=== PATIENT | male | born 1970 | race African-American/Black ===

== ENCOUNTER 2018-11-15 14:53 | Inpatient (IN) | payer MEDICARE, OTHER ==
[~2018-11-15] VITALS: Ht 190.5 cm; Wt 79.7 kg
[2018-11-15 17:04] LABS: Basophils # (auto) 0.1 uL; Basophils % (auto) 0.6 % (0.0-2.0); Eosinophils # (auto) 0 uL; Eosinophils % (auto) 0.1 % (0.0-7.0); Hematocrit 40.5 % (41.0-53.0); Hemoglobin 13.3 g/dL (13.5-17.5); Lymphocytes % (auto) 16.9 % (10.0-50.0); Mean Corpuscular Hemoglobin 31.1 pg (28.0-32.0); Mean Corpuscular Hgb Conc. 32.9 g/dL (32.0-36.0); Mean Corpuscular Volume 94.7 fL (80.0-100.0); Monocytes # (auto) 1.9 uL; Neutrophils % (auto) 66.4 % (37.0-80.0); Platelet Count (auto) 213 10^3/uL (140-450); Red Blood Cells 4.28 10^6/uL (4.5-5.90); Red Cell Distribution Width 18.9 % (11.8-14.3)
[2018-11-15 17:16] LABS: Albumin 3.3 g/dL (3.4-5.0); Calcium 10.4 mg/dL (8.5-10.1); Potassium 4.9 mmol/L (3.5-5.1)
[2018-11-15 17:18] LABS: BUN/Creatinine Ratio 7.9
[2018-11-15 17:21] LABS: Bilirubin, Total 0.7 mg/dL (0.2-1.0); Total Protein 6.7 g/dL (6.4-8.2)
[2018-11-15] MEDS ORDERED: SODIUM CHLORIDE 0.9% 500 ML IV ONE (19:45)
[2018-11-15] MEDS ORDERED: NITROGLYCERIN 0.4 MG SL TAB SL PRN (19:45)
[2018-11-15] MEDS ORDERED: VANCOMYCIN PER PHARMACY 0 MG IV SCH (19:45)
[2018-11-15] MEDS ORDERED: MORPHINE SULF INJ 2 MG/ML SYRINGE 1ML IV PRN (19:45)
[2018-11-15] MEDS ORDERED: VANCOMYCIN 1GM/250ML 250 ML IV ONE (20:15)
[2018-11-15] MEDS: PANTOPRAZOLE 40 MG/10 ML VIAL INJ IV SCH (20:41)
--- NOTE | 2018-11-15 22:48 | NUR ---
Telemetry admit from [facility] admitted to Telemetry unit. Patient oriented to Shira Cr RN primary RN, unit, room, bed, and unit policies regarding patient care and visiting hours. Patient now on continuous telemetry monitoring, tele box #4 and telemetry reading on arrival to unit is SR. Patient on room air, weighed by bedscale and encouraged to call if they need something. All questions and concerns addressed, patient verbalized understanding. Note: PICC line in RUE from home, infusing NS 0.9% @ 100ml/hr. Patient noted to be incontinent of urine and wearing diaper from home. Diaper removed and discarded, patient cleaned of urine. Antifungal cream applied to perineum due to moisture-associated redness. All linens changed, personal clothing taken off and placed in bedside drawers. Patient placed in clean gown with assist from VALUER. Patient repositioned in bed for comfort, tolerated well. Secondary RN at bedside for admission and MRSA swab collection. Fall and safety precautions in place. Call light within reach. Will continue to monitor
[2018-11-15 22:50] VITALS: BP 140/88
[2018-11-15 23:24] VITALS: BP 140/88
[2018-11-15] MEDS ORDERED: POM PO (23:25)
[2018-11-15] MEDS: SODIUM CHLORIDE 0.9% 1,000 ML IV SCH (23:29)
[2018-11-16 04:45] VITALS: BP 141/84
[2018-11-16] MEDS: SODIUM CHLORIDE 0.9% 1,000 ML IV SCH ×2 (05:26→16:44)
--- NOTE | 2018-11-16 05:30 | NUR ---
REFUSE Dross Skimmer attempted to draw blood at this time, but patient is refusing. Attempted to calm patient down, educate patient, and hold upper extremities, but patient is refusing and unable to verbalize understanding. Dross Skimmer stated will return at later time. Will inform day shift RN
--- NOTE | 2018-11-16 08:00 | NUR ---
ASSESSMENT NOTE PATIENT IS ALERT TO SELF, VERY LIMITED TO UNDERSTAND, PT HAS AUTISM, INCONTINENT IN URINE AND STOOL, KEPT DRY AND CLEAN AT ALL TIMES.
[2018-11-16 08:35] VITALS: BP 147/78
--- NOTE | 2018-11-16 10:00 | NUR ---
FAMILY PATIENT'S SISTER AT BED SIDE
--- NOTE | 2018-11-16 11:10 | NUR ---
DR GONZALEZ AT BED SIDE FOLLOWING UP ON PT, DISCUSSING THE DISCHARGE PLANING WITH PATIENT'S SISTER TO TRANSFER PT TO [facility], FAMILY VERBALIS UNDERSTANDING
[2018-11-16 11:48] VITALS: BP 141/70
--- NOTE | 2018-11-16 15:02 | NUR ---
Transfer: [facility] declined pt . I have faxed @ 0803 hrs to [facility], and [facility]. await response
--- NOTE | 2018-11-16 15:30 | NUR ---
SIMA PAUL FROM [facility], INFORM ME THAT [facility] REFUSED TO TAKE PT BACK, CONTINUE ON TRANSFER PROCESS
--- NOTE | 2018-11-16 15:49 | NUR ---
Transfer: [facility] from [facility] called and stated they are at capacity at present
[2018-11-16 16:41] VITALS: BP 142/86
--- NOTE | 2018-11-16 16:42 | NUR ---
[facility] is on will call. Medicare [facility] form completed and faxed to [place] and Dianna confirmed they received form
[2018-11-16] MEDS: PANTOPRAZOLE 40 MG/10 ML VIAL INJ IV SCH (16:43)
--- NOTE | 2018-11-16 16:43 | NUR ---
called [facility] and [facility] and they are reviewing pt transfer packet
--- NOTE | 2018-11-16 16:49 | NUR ---
[facility] is on will call. [facility] did not receive transfer packet so I just refaxed
--- NOTE | 2018-11-16 18:30 | NUR ---
PATIENT'S SISTER CALLED TO FOLLOW UP ON PATIENT'S TRANSFER, MADE AWARE OF THE LATEST UPDATE
--- NOTE | 2018-11-16 18:57 | NUR ---
PATIENT REPOSITION AT ALL TIMES, KEPT ALWAYS DRY AND CLEAN
--- NOTE | 2018-11-16 19:30 | NUR ---
Opening Shift Note Assumed care of patient, awake, no S/S of distress/SOB or pain. Patient is mumbling words, unable to understand it. bed in lowest and locked position, bed alarm on, will continue to monitor for changes Q1hr and PRN.
[2018-11-16] MEDS ORDERED: VANCOMYCIN 1GM/250ML 250 ML IV ONE (21:00)
[2018-11-16 21:44] VITALS: BP 137/75
--- NOTE | 2018-11-17 01:25 | NUR ---
Turning to his side and every 2 hours done, will continue to monitor
[2018-11-17] MEDS: SODIUM CHLORIDE 0.9% 1,000 ML IV SCH ×2 (01:45→11:45)
[2018-11-17 04:43] VITALS: BP 131/80
[2018-11-17] MEDS ORDERED: PANTOPRAZOLE 40 MG/10 ML VIAL INJ IV SCH (06:00)
[2018-11-17 06:02] LABS: Basophils # (auto) 0 uL; Basophils % (auto) 0.8 % (0.0-2.0); Eosinophils # (auto) 0.1 uL; Hematocrit 32.8 % (41.0-53.0); Hemoglobin 11.1 g/dL (13.5-17.5); Lymphocytes # (auto) 1.6 uL; Lymphocytes % (auto) 28.5 % (10.0-50.0); Mean Corpuscular Hemoglobin 31.6 pg (28.0-32.0); Mean Corpuscular Hgb Conc. 33.7 g/dL (32.0-36.0); Mean Corpuscular Volume 93.7 fL (80.0-100.0); Monocytes # (auto) 0.8 uL; Monocytes % (auto) 14.8 % (0.0-12.0); Neutrophils # (auto) 3.1 uL; Neutrophils % (auto) 54.9 % (37.0-80.0); Platelet Count (auto) 167 10^3/uL (140-450); White Blood Cell 5.7 10^3/uL (4.4-10.8)
--- NOTE | 2018-11-17 06:06 | NUR ---
Noted MRSA Negative, removed Isolation [facility] at this time, CN Lucero renee
[2018-11-17 06:23] LABS: Albumin 2.8 g/dL (3.4-5.0); BUN/Creatinine Ratio 5.3; Calcium 8.8 mg/dL (8.5-10.1); Magnesium 2.1 mg/dL (1.6-2.6); Potassium 3.7 mmol/L (3.5-5.1)
[2018-11-17 06:26] LABS: Bilirubin, Total 0.4 mg/dL (0.2-1.0); Total Protein 5.3 g/dL (6.4-8.2)
[2018-11-17 06:33] LABS: Urine Bacteria FEW /hpf (None Seen); Urine Blood Negative /uL (Negative); Urine Hyaline Cast FEW /lpf (0 - 2); Urine Specific Gravity 1.015 (1.001-1.035)
[2018-11-17 06:34] LABS: Urine WBC 14 /hpf (0 - 3)
[2018-11-17 08:00] VITALS: BP 140/91
--- NOTE | 2018-11-17 08:00 | NUR ---
ASSESSMENT NOTE PATIENT CONTINUE STABLE, RESTING IN BED COMFORTABLY, NO DISTRESS NOTED, ABLE TO USE A FEW WORDS TO IDENTIFY HIS NEEDS, ABLE TO FOLLOW COMMANDS, AND SELF REPOSITION, INCONTINENT IN URINE AND STOOL, KEPT CLEAN AND DRY AT ALL TIMES.
--- NOTE | 2018-11-17 08:47 | NUR ---
Transfer: Called I and had to leave message, [facility] has no beds, [facility] states pt is a [facility] pt and they are no longer accepting other [facility] pts other than their own county of [place] per [facility] of [facility]. [facility] called and I had to leave message
--- NOTE | 2018-11-17 11:00 | NUR ---
DR MARCH IS HERE FOLLOWING UP ON PT, WITH DISCHARGE HOME INSTRUCTION, PATIENT'S SISTER VERBALIS UNDERSTANDING
[2018-11-17] MEDS ORDERED: PANT40TA2 PO (11:39)
--- NOTE | 2018-11-17 12:15 | NUR ---
PICC LINE REMOVED INTACT FROM RT UPPER ARM, INTACT, PRESSURE APPLIED, PATIENT'S SISTER AT BED SIDE AWARE
[2018-11-17 13:00] VITALS: BP 138/87
--- NOTE | 2018-11-17 13:00 | NUR ---
Discharge instructions given as ordered. Encourage to follow up with PMD as instructed. All questions and concerns addressed. Patient verbalized understanding.Medication reconciliation form completed and copy given to patient. IV removed with catheter intact, pressure dressing applied, Telemetry unit returned to ICU. Patient taken to vehicle via wheelchair with all personal belongings, accompanied by staff and family member. No distress noted at time of departure.
== END 2018-11-17 13:05 | disposition home or self-care (01) | DRG 378 ==
LOC: ER 14:53 → EDSEX 14:53 → EDBD 14:53 → TELE 14:54 → TELE-EAST 22:49
PROVIDERS: ADMIT Nurse Practitioner Acute Care; ATTEND Internal Medicine
DX: K92.2 Gastrointestinal hemorrhage, unspecified (principal); E87.1 Hypo-osmolality and hyponatremia; F84.0 Autistic disorder; D72.829 Elevated white blood cell count, unspecified; D64.9 Anemia, unspecified; N18.3 Chronic kidney disease, stage 3 (moderate); Z82.49 Family history of ischemic heart disease and other diseases of the circulatory system; Z83.3 Family history of diabetes mellitus
CPT/HCPCS: 36415; 71045; 74176; 80053; 80202; 81001; 83690; 83735; 85025; 86850; 86900; 86901; 87040; 87081; 94761; 96361; 96365; 96375; C9113; G0378

== ENCOUNTER 2019-01-17 14:59 | Emergency (ER) | payer MEDICARE, MEDICAID ==
[~2019-01-17] VITALS: Ht 182.9 cm; Wt 77.1 kg
[~2019-01-17 14:59] MED LIST: PANT40TA2 PO; POM PO
[2019-01-17] MEDS ORDERED: SODIUM CHLORIDE 0.9% 1,000 ML IV ONE ×2 (15:35)
[2019-01-17] MEDS ORDERED: ONDANSETRON HCL 4 MG/2 ML VIAL IV ONE (15:45)
[2019-01-17] MEDS ORDERED: LORazepam 2MG/ML-1ML VIAL IM ONE (17:00)
[2019-01-17 20:00] VITALS: BP 99/58
== END 2019-01-17 20:15 | disposition home or self-care (01) ==
LOC: EDBD 14:59 → ER 15:15
DX: E86.0 Dehydration (principal)
CPT/HCPCS: 71045; 74176; 93005; 96361; 96372; 96374; 99284; J2060; J2405; J7030

== ENCOUNTER 2021-11-24 14:11 | Emergency (ER) | payer MEDICARE, MEDICAID ==
[~2021-11-24] VITALS: Ht 188 cm; Wt 100.0 kg
[2021-11-24 14:22] VITALS: BP 126/75
[2021-11-24] MEDS ORDERED: ACCU-CHEK COMFORT CURVE STRIP VI ONE (15:00)
== END 2021-11-24 15:16 | disposition left against medical advice (07) ==
LOC: ER 14:11 → EDBD 14:11 → ER 15:16
DX: R53.1 Weakness (principal); Z53.21 Procedure and treatment not carried out due to patient leaving prior to being seen by health care provider

== ENCOUNTER 2021-11-25 06:47 | Inpatient (IN) | payer MEDICARE, MEDICAID ==
[~2021-11-25] VITALS: Ht 188 cm; Wt 92.7 kg
[2021-11-25] VITALS (12 sets, daily range): BP systolic 129–172; BP diastolic 68–91
[2021-11-25] MEDS ORDERED: FUROSEMIDE 40 MG/4 ML VIAL IV ONE (07:15)
[2021-11-25 07:36] LABS: Hematocrit 14.5 % (41.0-53.0); Mean Corpuscular Hemoglobin 34.5 pg (28.0-32.0); Mean Corpuscular Hgb Conc. 34.9 g/dL (32.0-36.0); Mean Corpuscular Volume 99.1 fL (80.0-100.0); Red Blood Cells 1.46 10^6/uL (4.5-5.90)
[2021-11-25 07:47] LABS: Red Cell Distribution Width 25.6 % (11.8-14.3)
[2021-11-25 07:48] LABS: Basophils % (manual) 0 (0.0-2.0); Blast Cells 0; Eosinophils % (manual) 0 (0-7); Metamyelocytes % 0; Promyelocytes % 0
[2021-11-25 07:49] LABS: Potassium 5.3 mmol/L (3.5-5.1)
[2021-11-25 07:55] LABS: BUN/Creatinine Ratio 3.6; Bilirubin, Total 0.8 mg/dL (0.2-1.0); Total Protein 6.6 g/dL (6.4-8.2)
[2021-11-25 08:00] LABS: INR 1.25 (0.9-1.15); Partial Thromboplastin Time 31.8 sec (24.6-33.4)
[2021-11-25] MEDS ORDERED: SODIUM CHL 0.9% 1000 ML BAG XX ONE (08:00)
[2021-11-25] MEDS ORDERED: BUMETANIDE 2.5mg/10ml (0.25 mg/ml) INJ IV ONE (08:15)
[2021-11-25 08:46] LABS: Band Neutrophils % (manual) 3; Lymphocytes % (manual) 22 (10.0-50.0); Monocytes % (manual) 14 (0-12); Myelocytes % 1; Reactive Lymphocytes 1
[2021-11-25] MEDS ORDERED: ONDANSETRON HCL 4 MG/2 ML VIAL IV PRN (11:45)
[2021-11-25] MEDS ORDERED: hydrALAZINE HCL 20 MG/ML VL IV PRN (12:15)
[2021-11-25 13:08] LABS: Cholesterol 117 mg/dL (< 200); HDL Cholesterol 43 mg/dL (40-59); LDL Cholesterol 57 mg/dL (< 100); Triglycerides 120 mg/dL (< 150)
[2021-11-25] MEDS: RIFAMPIN 300 MG PO SCH ×2 (14:00→21:30)
[2021-11-25] MEDS ORDERED: diphenhdrAMINE HCL 50 MG/1 ML VL IV ONE (18:00)
[2021-11-26] MEDS: RIFAMPIN 300 MG PO SCH ×2 (05:59→14:00)
[2021-11-26 09:00] VITALS: BP 152/87
[2021-11-26 10:06] LABS: Hematocrit 20.5 % (41.0-53.0); Mean Corpuscular Hemoglobin 32.8 pg (28.0-32.0); Mean Corpuscular Hgb Conc. 33.6 g/dL (32.0-36.0); Mean Corpuscular Volume 97.7 fL (80.0-100.0); White Blood Cell 3.2 10^3/uL (4.4-10.8)
[2021-11-26 10:23] LABS: Hemoglobin 6.9 g/dL (13.5-17.5)
[2021-11-26 10:25] LABS: Band Neutrophils % (manual) 0; Blast Cells 0; Eosinophils % (manual) 0 (0-7); Monocytes % (manual) 0 (0-12); Myelocytes % 0; Promyelocytes % 0; Reactive Lymphocytes 0
[2021-11-26 10:29] LABS: Potassium 4.3 mmol/L (3.5-5.1)
[2021-11-26 10:30] LABS: BUN/Creatinine Ratio 3.1; Calcium 8.3 mg/dL (8.5-10.1)
[2021-11-26] MEDS: PANTOPRAZOLE 40 MG TAB PO SCH (10:56)
[2021-11-26 12:33] VITALS: BP 130/74
[2021-11-26 12:48] VITALS: BP 125/68
[2021-11-26 13:00] VITALS: BP 130/74
[2021-11-26 13:07] LABS: Basophils % (manual) 1 (0.0-2.0); Lymphocytes % (manual) 15 (10.0-50.0); Metamyelocytes % 1
[2021-11-26 16:38] VITALS: BP 154/90
[2021-11-26 16:50] VITALS: BP 154/94
[2021-11-26] MEDS: rifAMPin 300 MG CAP PO SCH (22:14)
[2021-11-27 05:00] VITALS: BP 132/81
[2021-11-27] MEDS: rifAMPin 300 MG CAP PO SCH ×3 (06:24→22:00)
[2021-11-27 06:37] LABS: Hematocrit 22.8 % (41.0-53.0); Hemoglobin 7.7 g/dL (13.5-17.5)
[2021-11-27 06:39] LABS: % Iron Saturation 25.1 % (20-55)
[2021-11-27] MEDS ORDERED: SODIUM CHL 0.9% 1000 ML BAG XX ONE (07:00)
[2021-11-27 07:45] LABS: Albumin 3.1 g/dL (3.4-5.0); BUN/Creatinine Ratio 2.6; Calcium 8.1 mg/dL (8.5-10.1)
[2021-11-27 07:47] LABS: Bilirubin, Total 1.5 mg/dL (0.2-1.0)
[2021-11-27 08:35] LABS: Hematocrit 22.7 % (41.0-53.0); Hemoglobin 7.8 g/dL (13.5-17.5); Mean Corpuscular Hemoglobin 32.9 pg (28.0-32.0); Mean Corpuscular Hgb Conc. 34.4 g/dL (32.0-36.0); Mean Corpuscular Volume 95.6 fL (80.0-100.0); Red Blood Cells 2.37 10^6/uL (4.5-5.90); Red Cell Distribution Width 21.6 % (11.8-14.3); White Blood Cell 3.1 10^3/uL (4.4-10.8)
[2021-11-27 08:37] LABS: Basophils % (manual) 0 (0.0-2.0); Blast Cells 0; Metamyelocytes % 0; Myelocytes % 0; Promyelocytes % 0; Reactive Lymphocytes 0
[2021-11-27] MEDS: PANTOPRAZOLE 40 MG TAB PO SCH (08:46)
[2021-11-27 08:48] VITALS: BP 145/82
[2021-11-27 09:00] LABS: Folate (Folic Acid) 13.46 ng/mL (5.38-24)
[2021-11-27 09:21] LABS: Band Neutrophils % (manual) 3; Lymphocytes % (manual) 19 (10.0-50.0)
[2021-11-27 09:22] LABS: Eosinophils % (manual) 1 (0-7); Monocytes % (manual) 27 (0-12)
[2021-11-27 13:00] VITALS: BP 129/78
[2021-11-27] MEDS ORDERED: ACYC1CAP23 PO (16:15)
[2021-11-27] MEDS ORDERED: FAMO20TA10 PO (16:15)
[2021-11-27] MEDS ORDERED: ONDA-144 PO (16:28)
[2021-11-27] MEDS ORDERED: DEXA4TAB PO (16:28)
[2021-11-27] MEDS ORDERED: POM ×2 (16:28→16:30)
[2021-11-27] MEDS ORDERED: ALLO100T PO (16:28)
[2021-11-27] MEDS ORDERED: AML5T PO (16:30)
[2021-11-27] MEDS ORDERED: HYDR-4798 PO (16:30)
[2021-11-27 16:59] VITALS: BP 142/91
[2021-11-27] MEDS ORDERED: EPOETIN ALFA-EPBX 10,000 UNIT/1ML VIAL SC ONE (21:00)
[2021-11-27 22:00] VITALS: BP 137/88
[2021-11-28 05:00] VITALS: BP 143/91
[2021-11-28] MEDS: rifAMPin 300 MG CAP PO SCH ×2 (06:00→14:00)
[2021-11-28 08:52] VITALS: BP 155/92
[2021-11-28] MEDS: PANTOPRAZOLE 40 MG TAB PO SCH (10:11)
[2021-11-28 10:19] LABS: Hemoglobin 8.1 g/dL (13.5-17.5)
[2021-11-28 10:20] LABS: Hematocrit 24.7 % (41.0-53.0); Mean Corpuscular Hemoglobin 32.1 pg (28.0-32.0); Mean Corpuscular Hgb Conc. 32.7 g/dL (32.0-36.0); Mean Corpuscular Volume 98.2 fL (80.0-100.0); Red Blood Cells 2.51 10^6/uL (4.5-5.90)
[2021-11-28 10:22] LABS: Red Cell Distribution Width 22.4 % (11.8-14.3)
[2021-11-28 10:23] LABS: Basophils % (manual) 0 (0.0-2.0); Blast Cells 0; Promyelocytes % 0; Reactive Lymphocytes 0
[2021-11-28 10:41] LABS: Albumin 3.2 g/dL (3.4-5.0); Calcium 9.2 mg/dL (8.5-10.1); Potassium 4.2 mmol/L (3.5-5.1)
[2021-11-28 10:46] LABS: BUN/Creatinine Ratio 2.6; Total Protein 7.2 g/dL (6.4-8.2)
[2021-11-28 11:43] LABS: Band Neutrophils % (manual) 4; Eosinophils % (manual) 4 (0-7); Lymphocytes % (manual) 22 (10.0-50.0); Metamyelocytes % 3; Monocytes % (manual) 9 (0-12); Myelocytes % 1
[2021-11-28 13:00] VITALS: BP 145/86
[2021-11-28 16:59] VITALS: BP 149/83
[2021-11-28] MEDS ORDERED: cefTRIAXone 1GM/50ML D5W 50 ML IV ONE (18:45)
[2021-11-28 22:00] VITALS: BP 163/86
[2021-11-29 05:00] VITALS: BP 164/97
[2021-11-29] MEDS ORDERED: SODIUM CHL 0.9% 1000 ML BAG XX ONE (07:00)
[2021-11-29] MEDS ORDERED: cefTRIAXone 1GM/50ML D5W 50 ML IV SCH (09:00)
[2021-11-29 09:04] VITALS: BP 166/86
[2021-11-29] MEDS: PANTOPRAZOLE 40 MG TAB PO SCH (10:22)
[2021-11-29] MEDS ORDERED: MULT-1058 PO (11:09)
[2021-11-29] MEDS ORDERED: ASCO500C49 PO (11:09)
[2021-11-29] MEDS ORDERED: FERR-7 PO (11:09)
[2021-11-29] MEDS ORDERED: AZIT500T66 PO (11:09)
[2021-11-29 12:30] VITALS: BP 135/81
[2021-11-29 13:00] VITALS: BP 168/98
[2021-11-29] MEDS ORDERED: EPOETIN ALFA-EPBX 4,000 UNIT/ML VIAL SC ONE (21:00)
== END 2021-11-29 13:15 | disposition home or self-care (01) | DRG 291 ==
LOC: EDUNIT# 06:47 → ER 06:47 → OVERFLOW 11:35 → CENTRAL 16:07
PROVIDERS: ADMIT Registered Nurse; ATTEND Family Medicine
PROC: 5A1D70Z Performance of Urinary Filtration, Intermittent, Less than 6 Hours Per Day (ICD-10-PCS; principal; 2021-11-25)
PROC: 30233N1 Transfusion of Nonautologous Red Blood Cells into Peripheral Vein, Percutaneous Approach (ICD-10-PCS; 2021-11-25)
PROC: 5A1D70Z Performance of Urinary Filtration, Intermittent, Less than 6 Hours Per Day (ICD-10-PCS; 2021-11-27)
DX: I13.2 Hypertensive heart and chronic kidney disease with heart failure and with stage 5 chronic kidney disease, or end stage renal disease (principal); E43 Unspecified severe protein-calorie malnutrition; N18.6 End stage renal disease; J96.21 Acute and chronic respiratory failure with hypoxia; J18.9 Pneumonia, unspecified organism; C90.00 Multiple myeloma not having achieved remission; F84.0 Autistic disorder; J44.0 Chronic obstructive pulmonary disease with (acute) lower respiratory infection; J98.11 Atelectasis; Z66 Do not resuscitate; E87.5 Hyperkalemia; E78.5 Hyperlipidemia, unspecified; R79.1 Abnormal coagulation profile; D63.8 Anemia in other chronic diseases classified elsewhere; E78.00 Pure hypercholesterolemia, unspecified; I50.9 Heart failure, unspecified; Z99.2 Dependence on renal dialysis; Z68.35 Body mass index [BMI] 35.0-35.9, adult; Z82.49 Family history of ischemic heart disease and other diseases of the circulatory system
CPT/HCPCS: 36415; 71045; 80048; 80053; 80061; 82270; 82607; 82728; 82746; 83036; 83540; 83550; 83880; 84443; 84484; 85007; 85014; 85018; 85027; 85379; 85610; 85730; 86850; 86900; 86901; 86920; 87426; 90935; 93970; 96374; 99291; G0378; J0696; J1642

== ENCOUNTER 2021-11-30 11:20 | Inpatient (IN) | payer MEDICARE, MEDICAID ==
[~2021-11-30] VITALS: Ht 188 cm; Wt 86.0 kg
[~2021-11-30 11:20] MED LIST changes: +ACYC1CAP23 PO; +ALLO100T PO; +AML5T PO; +ASCO500C49 PO; +AZIT500T66 PO; +DEXA4TAB PO; +FAMO20TA10 PO; +FERR-7 PO; +HYDR-4798 PO; +MULT-1058 PO; +ONDA-144 PO; +POM; -POM PO
[2021-11-30 13:22] LABS: Hemoglobin 7.5 g/dL (13.5-17.5)
[2021-11-30 13:31] LABS: Hematocrit 22.3 % (41.0-53.0); Mean Corpuscular Hemoglobin 32.5 pg (28.0-32.0); Mean Corpuscular Hgb Conc. 33.6 g/dL (32.0-36.0); Mean Corpuscular Volume 96.8 fL (80.0-100.0)
[2021-11-30 13:32] LABS: Basophils % (manual) 0 (0.0-2.0); Blast Cells 0; Myelocytes % 0; Promyelocytes % 0; Reactive Lymphocytes 0; Red Cell Distribution Width 22.2 % (11.8-14.3)
[2021-11-30 13:43] LABS: Calcium 8.7 mg/dL (8.5-10.1); Potassium 5.1 mmol/L (3.5-5.1)
[2021-11-30 14:44] LABS: Band Neutrophils % (manual) 4; Eosinophils % (manual) 2 (0-7); Lymphocytes % (manual) 12 (10.0-50.0); Metamyelocytes % 1; Monocytes % (manual) 18 (0-12)
[2021-11-30 14:55] LABS: Bilirubin, Total 0.6 mg/dL (0.2-1.0)
[2021-11-30] MEDS ORDERED: levoFLOXacin 500MG 100 ML IV ONE (16:15)
[2021-11-30] MEDS ORDERED: MORPHINE SULFATE INJ 2 MG/ml SYRG IV PRN (16:45)
[2021-11-30] MEDS ORDERED: IPRATROPIUM BROM 0.5 MG/2.5ML INH SOL NEB PRN (16:45)
[2021-11-30] MEDS ORDERED: ALBUTEROL SULF 2.5 MG/0.5ML(0.5%) NEB SOLN NEB PRN (16:45)
[2021-11-30] MEDS ORDERED: NITROGLYCERIN 0.4 MG SL TAB SL PRN (16:45)
[2021-11-30] MEDS: ALBUTEROL SULF 2.5 MG/0.5ML(0.5%) NEB SOLN NEB SCH (17:14)
[2021-11-30] MEDS: IPRATROPIUM BROM 0.5 MG/2.5ML INH SOL NEB SCH (17:14)
[2021-11-30 17:20] VITALS: BP 154/93
[2021-11-30] MEDS ORDERED: LORazepam 2MG/ML-1ML VIAL IV ONE (21:15)
[2021-11-30] MEDS: FERROUS SULFATE 325mg EC TAB PO SCH (23:17)
[2021-12-01] VITALS (37 sets, daily range): BP systolic 103–180; BP diastolic 43–90
[2021-12-01] MEDS ORDERED: HALOPERIDOL LACTATE 5 MG/ML INJ VIAL IM ONE (00:30)
[2021-12-01 01:06] LABS: Hematocrit 21.5 % (41.0-53.0); Hemoglobin 7.5 g/dL (13.5-17.5); Mean Corpuscular Hemoglobin 33.7 pg (28.0-32.0); Mean Corpuscular Hgb Conc. 35.1 g/dL (32.0-36.0); Mean Corpuscular Volume 96.1 fL (80.0-100.0); Red Blood Cells 2.23 10^6/uL (4.5-5.90); White Blood Cell 3.7 10^3/uL (4.4-10.8)
[2021-12-01 01:14] LABS: Albumin 2.9 g/dL (3.4-5.0); BUN/Creatinine Ratio 3.1; Calcium 8.7 mg/dL (8.5-10.1); Potassium 4.8 mmol/L (3.5-5.1)
[2021-12-01] MEDS ORDERED: MORPHINE SULFATE INJ 2 MG/ml SYRG IV PRN (01:15)
[2021-12-01 01:17] LABS: Bilirubin, Total 0.6 mg/dL (0.2-1.0); Red Cell Distribution Width 21.9 % (11.8-14.3); Total Protein 7.4 g/dL (6.4-8.2)
[2021-12-01 01:18] LABS: Basophils % (manual) 0 (0.0-2.0); Blast Cells 0; Metamyelocytes % 0; Myelocytes % 0; Promyelocytes % 0; Reactive Lymphocytes 0
[2021-12-01 02:05] LABS: Band Neutrophils % (manual) 2; Eosinophils % (manual) 2 (0-7); Lymphocytes % (manual) 21 (10.0-50.0); Monocytes % (manual) 13 (0-12)
[2021-12-01] MEDS: IPRATROPIUM BROM 0.5 MG/2.5ML INH SOL NEB SCH ×3 (06:00→18:15)
[2021-12-01] MEDS: ALBUTEROL SULF 2.5 MG/0.5ML(0.5%) NEB SOLN NEB SCH ×3 (06:00→18:15)
[2021-12-01] MEDS ORDERED: LORazepam 2MG/ML-1ML VIAL IV ONE (06:15)
[2021-12-01] MEDS ORDERED: SUCCINYLCHOLINE CHLORIDE 20 MG/ML 10ML VIAL IV ONE ×2 (07:42→07:45)
[2021-12-01] MEDS ORDERED: ETOMIDATE (2MG/ML) 20ML VIAL IV ONE ×2 (07:42→07:45)
[2021-12-01] MEDS ORDERED: NOREPINEPHRINE 8 MG/250ML KIT 250 ML IV ONE (07:47)
[2021-12-01] MEDS ORDERED: MIDAZOLAM DRIP 50 mg/50mL 50 ML IV ONE (07:47)
[2021-12-01] MEDS: MIDAZOLAM DRIP 50 mg/50mL 50 ML IV SCH ×5 (07:50→23:13)
[2021-12-01] MEDS: PROPOFOL 100 ML IV SCH ×4 (07:50→18:59)
[2021-12-01] MEDS ORDERED: PROPOFOL 100 ML IV ONE (08:00)
[2021-12-01] MEDS ORDERED: LIDOCAINE 2% JELLY 11ml (GLYDO) ONE (08:41)
[2021-12-01] MEDS: NOREPINEPHRINE 8 MG/250ML KIT 250 ML IV SCH (09:00)
[2021-12-01] MEDS ORDERED: FAMOTIDINE 20 MG TAB PO SCH (10:00)
[2021-12-01] MEDS: amLODIPine BESYLATE 5 MG TAB PO SCH (10:00)
[2021-12-01] MEDS: FERROUS SULFATE 325mg EC TAB PO SCH ×2 (10:35→22:30)
[2021-12-01] MEDS: PANTOPRAZOLE 40 MG TAB PO SCH (10:35)
[2021-12-01] MEDS: cefTRIAXone 1GM/50ML D5W 50 ML IV SCH (10:36)
[2021-12-01] MEDS: ASCORBIC ACID 500 MG TAB PO SCH (10:36)
[2021-12-01] MEDS: MULTIPLE VITAMINS W/ MINERALS TAB PO SCH (10:36)
[2021-12-01] MEDS: AZITHROMYCIN 500MG/ 250ML 250 ML IV SCH (10:37)
[2021-12-01] MEDS ORDERED: SODIUM CHL 0.9% 1000 ML BAG XX ONE (12:45)
[2021-12-01] MEDS ORDERED: EPOETIN ALFA-EPBX 4,000 UNIT/ML VIAL SC ONE (21:00)
[2021-12-02] VITALS (105 sets, daily range): BP systolic 84–127; BP diastolic 29–72
[2021-12-02] MEDS: MIDAZOLAM DRIP 50 mg/50mL 50 ML IV SCH ×7 (02:10→23:13)
[2021-12-02] MEDS: PROPOFOL 100 ML IV SCH ×5 (02:39→22:55)
[2021-12-02 03:58] LABS: Hematocrit 21.1 % (41.0-53.0); White Blood Cell 2.2 10^3/uL (4.4-10.8)
[2021-12-02 04:00] LABS: Hemoglobin 7.2 g/dL (13.5-17.5); Mean Corpuscular Hgb Conc. 34.4 g/dL (32.0-36.0); Mean Corpuscular Volume 95.9 fL (80.0-100.0); Red Blood Cells 2.19 10^6/uL (4.5-5.90)
[2021-12-02 04:03] LABS: Basophils % (manual) 0 (0.0-2.0); Blast Cells 0; Metamyelocytes % 0; Myelocytes % 0; Promyelocytes % 0; Reactive Lymphocytes 0
[2021-12-02 04:11] LABS: INR 1.23 (0.9-1.15); Partial Thromboplastin Time 34.7 sec (24.6-33.4)
[2021-12-02 04:14] LABS: BUN/Creatinine Ratio 2.4; Calcium 8.6 mg/dL (8.5-10.1); Potassium 4.5 mmol/L (3.5-5.1)
[2021-12-02] MEDS: ALBUTEROL SULF 2.5 MG/0.5ML(0.5%) NEB SOLN NEB SCH ×3 (05:56→18:31)
[2021-12-02] MEDS: IPRATROPIUM BROM 0.5 MG/2.5ML INH SOL NEB SCH ×3 (05:56→18:31)
[2021-12-02] MEDS: NOREPINEPHRINE 8 MG/250ML KIT 250 ML IV SCH (07:40)
[2021-12-02] MEDS: cefTRIAXone 1GM/50ML D5W 50 ML IV SCH (08:35)
[2021-12-02 09:34] LABS: Band Neutrophils % (manual) 3; Eosinophils % (manual) 1 (0-7); Lymphocytes % (manual) 16 (10.0-50.0); Monocytes % (manual) 27 (0-12)
[2021-12-02] MEDS: MULTIPLE VITAMINS W/ MINERALS TAB PO SCH (09:41)
[2021-12-02] MEDS: ASCORBIC ACID 500 MG TAB PO SCH (09:41)
[2021-12-02] MEDS: FERROUS SULFATE 325mg EC TAB PO SCH ×2 (09:41→21:44)
[2021-12-02] MEDS: AZITHROMYCIN 500MG/ 250ML 250 ML IV SCH (09:41)
[2021-12-02] MEDS: PANTOPRAZOLE 40 MG TAB PO SCH (09:42)
[2021-12-02] MEDS: amLODIPine BESYLATE 5 MG TAB PO SCH (09:42)
[2021-12-03] VITALS (96 sets, daily range): BP systolic 85–144; BP diastolic 27–71
[2021-12-03] MEDS: MIDAZOLAM DRIP 50 mg/50mL 50 ML IV SCH ×6 (03:04→21:17)
[2021-12-03 03:55] LABS: Hematocrit 19.3 % (41.0-53.0)
[2021-12-03 04:07] LABS: Hemoglobin 6.7 g/dL (13.5-17.5)
[2021-12-03] MEDS: PROPOFOL 100 ML IV SCH ×4 (04:48→17:28)
[2021-12-03 05:08] LABS: Potassium 4.4 mmol/L (3.5-5.1)
[2021-12-03 05:09] LABS: Calcium 8.7 mg/dL (8.5-10.1); Magnesium 2.2 mg/dL (1.6-2.6)
[2021-12-03 05:12] LABS: BUN/Creatinine Ratio 2.6
[2021-12-03 05:27] LABS: INR 1.18 (0.9-1.15); Partial Thromboplastin Time 31.6 sec (24.6-33.4)
[2021-12-03] MEDS: IPRATROPIUM BROM 0.5 MG/2.5ML INH SOL NEB SCH ×3 (06:39→18:38)
[2021-12-03] MEDS: ALBUTEROL SULF 2.5 MG/0.5ML(0.5%) NEB SOLN NEB SCH ×3 (06:39→18:38)
[2021-12-03] MEDS ORDERED: SODIUM CHL 0.9% 1000 ML BAG XX ONE (07:00)
[2021-12-03] MEDS: PANTOPRAZOLE 40 MG/10 ML VIAL INJ IV SCH (10:31)
[2021-12-03] MEDS: FERROUS SULFATE 325mg EC TAB PO SCH ×2 (10:32→21:14)
[2021-12-03] MEDS: ASCORBIC ACID 500 MG TAB PO SCH (10:32)
[2021-12-03] MEDS: MULTIPLE VITAMINS W/ MINERALS TAB PO SCH (10:32)
[2021-12-03] MEDS ORDERED: ALBUMIN 25% 100 ML IV ONE (11:45)
[2021-12-03] MEDS: cefTRIAXone 1GM/50ML D5W 50 ML IV SCH (13:31)
[2021-12-03] MEDS: NOREPINEPHRINE 8 MG/250ML KIT 250 ML IV SCH (13:48)
[2021-12-03] MEDS: AZITHROMYCIN 500MG/ 250ML 250 ML IV SCH (14:02)
[2021-12-03] MEDS ORDERED: EPOETIN ALFA-EPBX 10,000 UNIT/1ML VIAL SC ONE (21:00)
[2021-12-04] VITALS (108 sets, daily range): BP systolic 92–133; BP diastolic 32–73
[2021-12-04] MEDS: PROPOFOL 100 ML IV SCH ×4 (00:37→20:40)
[2021-12-04] MEDS: MIDAZOLAM DRIP 50 mg/50mL 50 ML IV SCH ×3 (04:40→20:49)
[2021-12-04 05:14] LABS: BUN/Creatinine Ratio 2.2; Calcium 8.6 mg/dL (8.5-10.1); Potassium 4.1 mmol/L (3.5-5.1)
[2021-12-04 05:17] LABS: White Blood Cell 2.8 10^3/uL (4.4-10.8)
[2021-12-04 05:19] LABS: Hematocrit 22.9 % (41.0-53.0); Mean Corpuscular Hemoglobin 33.2 pg (28.0-32.0); Mean Corpuscular Volume 94.9 fL (80.0-100.0); Red Blood Cells 2.41 10^6/uL (4.5-5.90)
[2021-12-04 05:21] LABS: Basophils % (manual) 0 (0.0-2.0); Blast Cells 0; Myelocytes % 0; Promyelocytes % 0; Reactive Lymphocytes 0; Red Cell Distribution Width 20.6 % (11.8-14.3)
[2021-12-04] MEDS: ALBUTEROL SULF 2.5 MG/0.5ML(0.5%) NEB SOLN NEB SCH ×3 (06:15→18:38)
[2021-12-04] MEDS: IPRATROPIUM BROM 0.5 MG/2.5ML INH SOL NEB SCH ×3 (06:15→18:39)
[2021-12-04] MEDS: NOREPINEPHRINE 8 MG/250ML KIT 250 ML IV SCH (07:40)
[2021-12-04 09:00] LABS: Band Neutrophils % (manual) 3; Eosinophils % (manual) 1 (0-7); Lymphocytes % (manual) 16 (10.0-50.0); Metamyelocytes % 2; Monocytes % (manual) 21 (0-12)
[2021-12-04] MEDS: cefTRIAXone 1GM/50ML D5W 50 ML IV SCH (09:26)
[2021-12-04] MEDS: MULTIPLE VITAMINS W/ MINERALS TAB PO SCH (09:42)
[2021-12-04] MEDS: PANTOPRAZOLE 40 MG/10 ML VIAL INJ IV SCH (09:42)
[2021-12-04] MEDS: FERROUS SULFATE 325mg EC TAB PO SCH ×2 (09:42→20:49)
[2021-12-04] MEDS: ASCORBIC ACID 500 MG TAB PO SCH (09:48)
[2021-12-04] MEDS: AZITHROMYCIN 500MG/ 250ML 250 ML IV SCH (10:06)
[2021-12-04] MEDS ORDERED: IODIXANOL 320MG/ML 100ML BTL IV ONE (13:11)
[2021-12-05] VITALS (109 sets, daily range): BP systolic 72–142; BP diastolic 25–67
[2021-12-05] MEDS: NOREPINEPHRINE 8 MG/250ML KIT 250 ML IV SCH (01:45)
[2021-12-05] MEDS: PROPOFOL 100 ML IV SCH ×2 (03:20→08:49)
[2021-12-05 03:59] LABS: White Blood Cell 2.7 10^3/uL (4.4-10.8)
[2021-12-05 04:00] LABS: Potassium 4.2 mmol/L (3.5-5.1)
[2021-12-05 04:01] LABS: Hematocrit 21.5 % (41.0-53.0); Hemoglobin 7.5 g/dL (13.5-17.5); Mean Corpuscular Hgb Conc. 34.9 g/dL (32.0-36.0); Mean Corpuscular Volume 94.5 fL (80.0-100.0); Red Blood Cells 2.28 10^6/uL (4.5-5.90)
[2021-12-05 04:04] LABS: BUN/Creatinine Ratio 2.8; Calcium 8.8 mg/dL (8.5-10.1); Red Cell Distribution Width 20.7 % (11.8-14.3)
[2021-12-05 04:06] LABS: Basophils % (manual) 0 (0.0-2.0); Blast Cells 0; Metamyelocytes % 0; Promyelocytes % 0; Reactive Lymphocytes 0
[2021-12-05 04:09] LABS: INR 1.13 (0.9-1.15); Partial Thromboplastin Time 33.9 sec (24.6-33.4)
[2021-12-05] MEDS: MIDAZOLAM DRIP 50 mg/50mL 50 ML IV SCH ×2 (04:10→21:45)
[2021-12-05] MEDS: ALBUTEROL SULF 2.5 MG/0.5ML(0.5%) NEB SOLN NEB SCH ×3 (05:59→17:42)
[2021-12-05] MEDS: IPRATROPIUM BROM 0.5 MG/2.5ML INH SOL NEB SCH ×3 (05:59→17:42)
[2021-12-05 06:37] LABS: Band Neutrophils % (manual) 5; Eosinophils % (manual) 2 (0-7); Lymphocytes % (manual) 14 (10.0-50.0); Myelocytes % 6
[2021-12-05 06:38] LABS: Monocytes % (manual) 20 (0-12)
[2021-12-05] MEDS ORDERED: SODIUM CHL 0.9% 1000 ML BAG XX ONE (07:00)
[2021-12-05] MEDS: cefTRIAXone 1GM/50ML D5W 50 ML IV SCH (08:45)
[2021-12-05] MEDS ORDERED: HEPARIN IN NS 1000Units/500mL 0 ML ONE (08:47)
[2021-12-05] MEDS ORDERED: LIDOCAINE 2%HCL (LOCAL ANESTH.) INJ 10ml MDV ONE (08:47)
[2021-12-05] MEDS: AZITHROMYCIN 500MG/ 250ML 250 ML IV SCH (09:54)
[2021-12-05] MEDS: PANTOPRAZOLE 40 MG/10 ML VIAL INJ IV SCH (09:54)
[2021-12-05] MEDS: MULTIPLE VITAMINS W/ MINERALS TAB PO SCH (10:11)
[2021-12-05] MEDS: ASCORBIC ACID 500 MG TAB PO SCH (10:11)
[2021-12-05] MEDS: FERROUS SULFATE 325mg EC TAB PO SCH ×2 (10:11→21:40)
[2021-12-05] MEDS ORDERED: VANCOMYCIN PER PHARMACY 0 MG IV SCH (14:45)
[2021-12-05] MEDS ORDERED: Nepro With Carb Steady 1 Liter Bottle GT SCH (15:15)
[2021-12-05] MEDS ORDERED: VANCOMYCIN 1GM/250ML 250 ML IV ONE (15:45)
[2021-12-05] MEDS ORDERED: EPOETIN ALFA-EPBX 10,000 UNIT/1ML VIAL SC ONE (21:00)
[2021-12-06] VITALS (107 sets, daily range): BP systolic 84–184; BP diastolic 31–77
[2021-12-06] MEDS: ALBUTEROL SULF 2.5 MG/0.5ML(0.5%) NEB SOLN NEB SCH ×4 (00:01→18:06)
[2021-12-06] MEDS: IPRATROPIUM BROM 0.5 MG/2.5ML INH SOL NEB SCH ×4 (00:01→18:06)
[2021-12-06] MEDS: MIDAZOLAM DRIP 50 mg/50mL 50 ML IV SCH ×5 (01:44→21:09)
[2021-12-06 04:57] LABS: BUN/Creatinine Ratio 2.3; Calcium 9.1 mg/dL (8.5-10.1)
[2021-12-06 04:58] LABS: Mean Corpuscular Volume 95.4 fL (80.0-100.0)
[2021-12-06 05:00] LABS: Hematocrit 21.7 % (41.0-53.0); Hemoglobin 7.6 g/dL (13.5-17.5); Mean Corpuscular Hemoglobin 33.3 pg (28.0-32.0); Mean Corpuscular Hgb Conc. 34.9 g/dL (32.0-36.0); Red Blood Cells 2.28 10^6/uL (4.5-5.90); White Blood Cell 3.1 10^3/uL (4.4-10.8)
[2021-12-06 05:08] LABS: Red Cell Distribution Width 20.8 % (11.8-14.3)
[2021-12-06 05:10] LABS: Basophils % (manual) 0 (0.0-2.0); Blast Cells 0; Metamyelocytes % 0; Promyelocytes % 0; Reactive Lymphocytes 0
[2021-12-06 07:01] LABS: Band Neutrophils % (manual) 20; Eosinophils % (manual) 1 (0-7); Lymphocytes % (manual) 13 (10.0-50.0); Monocytes % (manual) 18 (0-12); Myelocytes % 2
[2021-12-06] MEDS: cefTRIAXone 1GM/50ML D5W 50 ML IV SCH (09:03)
[2021-12-06] MEDS: ASCORBIC ACID 500 MG TAB PO SCH (09:44)
[2021-12-06] MEDS: MULTIPLE VITAMINS W/ MINERALS TAB PO SCH (09:44)
[2021-12-06] MEDS: PANTOPRAZOLE 40 MG/10 ML VIAL INJ IV SCH (09:44)
[2021-12-06] MEDS: FERROUS SULFATE 325mg EC TAB PO SCH ×2 (09:44→21:44)
[2021-12-06] MEDS: AZITHROMYCIN 500MG/ 250ML 250 ML IV SCH (09:48)
[2021-12-06] MEDS: NOREPINEPHRINE 8 MG/250ML KIT 250 ML IV SCH (11:43)
[2021-12-06] MEDS ORDERED: POM PO (15:08)
[2021-12-07] VITALS (65 sets, daily range): BP systolic 86–154; BP diastolic 31–74
[2021-12-07] MEDS: IPRATROPIUM BROM 0.5 MG/2.5ML INH SOL NEB SCH ×3 (00:07→18:11)
[2021-12-07] MEDS: ALBUTEROL SULF 2.5 MG/0.5ML(0.5%) NEB SOLN NEB SCH ×3 (00:07→18:11)
[2021-12-07] MEDS: MIDAZOLAM DRIP 50 mg/50mL 50 ML IV SCH ×5 (00:13→23:45)
[2021-12-07 04:16] LABS: Hematocrit 22.7 % (41.0-53.0); Mean Corpuscular Hemoglobin 33.5 pg (28.0-32.0); Mean Corpuscular Hgb Conc. 35.1 g/dL (32.0-36.0); Mean Corpuscular Volume 95.5 fL (80.0-100.0); Red Blood Cells 2.38 10^6/uL (4.5-5.90)
[2021-12-07 04:23] LABS: Red Cell Distribution Width 20.9 % (11.8-14.3)
[2021-12-07 04:25] LABS: Basophils % (manual) 0 (0.0-2.0); Blast Cells 0; Promyelocytes % 0; Reactive Lymphocytes 0
[2021-12-07 04:42] LABS: Albumin 2.4 g/dL (3.4-5.0); Anion Gap 14 (5-15); Blood Urea Nitrogen 23 mg/dL (7-18); Calcium 8.7 mg/dL (8.5-10.1); Carbon Dioxide 22 mmol/L (21-32); Chloride 102 mmol/L (98-107); Glucose 91 mg/dL (74-106); Potassium 4.1 mmol/L (3.5-5.1); Sodium 138 mmol/L (136-145)
[2021-12-07 04:44] LABS: BUN/Creatinine Ratio 2.7; GFR African American 8 mL/min; GFR Non-African American 7 mL/min; Phosphorus 4.7 mg/dL (2.5-4.90)
[2021-12-07 05:02] LABS: Band Neutrophils % (manual) 6; Eosinophils % (manual) 1 (0-7); Lymphocytes % (manual) 22 (10.0-50.0); Metamyelocytes % 1; Monocytes % (manual) 14 (0-12); Myelocytes % 2
[2021-12-07] MEDS: NOREPINEPHRINE 8 MG/250ML KIT 250 ML IV SCH (07:40)
[2021-12-07] MEDS: PROPOFOL 100 ML IV SCH (07:45)
[2021-12-07] MEDS: cefTRIAXone 1GM/50ML D5W 50 ML IV SCH (09:13)
[2021-12-07] MEDS ORDERED: VANCOMYCIN 1GM/250ML 250 ML IV ONE (10:00)
[2021-12-07] MEDS: ASCORBIC ACID 500 MG TAB PO SCH (10:26)
[2021-12-07] MEDS: FERROUS SULFATE 325mg EC TAB PO SCH ×2 (10:27→21:41)
[2021-12-07] MEDS: AZITHROMYCIN 500MG/ 250ML 250 ML IV SCH (10:27)
[2021-12-07] MEDS: MULTIPLE VITAMINS W/ MINERALS TAB PO SCH (10:27)
[2021-12-07] MEDS: PANTOPRAZOLE 40 MG/10 ML VIAL INJ IV SCH (10:27)
[2021-12-08] VITALS (54 sets, daily range): BP systolic 78–131; BP diastolic 45–78
[2021-12-08] MEDS: MIDAZOLAM DRIP 50 mg/50mL 50 ML IV SCH ×4 (04:45→18:05)
[2021-12-08] MEDS: IPRATROPIUM BROM 0.5 MG/2.5ML INH SOL NEB SCH ×3 (06:17→19:30)
[2021-12-08] MEDS: ALBUTEROL SULF 2.5 MG/0.5ML(0.5%) NEB SOLN NEB SCH ×3 (06:17→19:30)
[2021-12-08] MEDS ORDERED: SODIUM CHL 0.9% 1000 ML BAG XX ONE (07:00)
[2021-12-08] MEDS: PROPOFOL 100 ML IV SCH (07:45)
[2021-12-08] MEDS ORDERED: LORazepam 2MG/ML-1ML VIAL IV ONE ×2 (09:45)
[2021-12-08] MEDS ORDERED: DexAMETHasone SOD PHOS 4 MG/1ML SDV INJ IV ONE (10:45)
[2021-12-08] MEDS ORDERED: ALBUMIN 25% 50 ML IV ONE (11:15)
[2021-12-08] MEDS: NOREPINEPHRINE 8 MG/250ML KIT 250 ML IV SCH (11:30)
[2021-12-08] MEDS: PANTOPRAZOLE 40 MG/10 ML VIAL INJ IV SCH (13:57)
[2021-12-08] MEDS: cefTRIAXone 1GM/50ML D5W 50 ML IV SCH (13:57)
[2021-12-08] MEDS: MULTIPLE VITAMINS W/ MINERALS TAB PO SCH (13:57)
[2021-12-08] MEDS: FERROUS SULFATE 325mg EC TAB PO SCH ×2 (13:57→21:31)
[2021-12-08] MEDS: ASCORBIC ACID 500 MG TAB PO SCH (13:58)
[2021-12-08] MEDS ORDERED: EPOETIN ALFA-EPBX 10,000 UNIT/1ML VIAL SC ONE (21:00)
[2021-12-09] VITALS (43 sets, daily range): BP systolic 77–134; BP diastolic 35–72
[2021-12-09] MEDS: MIDAZOLAM DRIP 50 mg/50mL 50 ML IV SCH ×2 (00:45→05:45)
[2021-12-09 04:47] LABS: Hemoglobin 7.8 g/dL (13.5-17.5); White Blood Cell 5.7 10^3/uL (4.4-10.8)
[2021-12-09 04:49] LABS: Hematocrit 22.8 % (41.0-53.0); Mean Corpuscular Hemoglobin 33.1 pg (28.0-32.0); Mean Corpuscular Volume 97.3 fL (80.0-100.0); Red Blood Cells 2.35 10^6/uL (4.5-5.90)
[2021-12-09 04:51] LABS: Red Cell Distribution Width 22.5 % (11.8-14.3)
[2021-12-09 04:53] LABS: Basophils % (manual) 0 (0.0-2.0); Blast Cells 0; Eosinophils % (manual) 0 (0-7); Metamyelocytes % 0; Myelocytes % 0; Promyelocytes % 0; Reactive Lymphocytes 0
[2021-12-09 05:06] LABS: BUN/Creatinine Ratio 3.2; Potassium 3.4 mmol/L (3.5-5.1)
[2021-12-09] MEDS: ALBUTEROL SULF 2.5 MG/0.5ML(0.5%) NEB SOLN NEB SCH (06:18)
[2021-12-09] MEDS: IPRATROPIUM BROM 0.5 MG/2.5ML INH SOL NEB SCH ×4 (06:19→23:59)
[2021-12-09] MEDS: NOREPINEPHRINE 8 MG/250ML KIT 250 ML IV SCH (07:40)
[2021-12-09] MEDS: PROPOFOL 100 ML IV SCH (07:45)
[2021-12-09 08:41] LABS: Band Neutrophils % (manual) 6; Lymphocytes % (manual) 31 (10.0-50.0); Monocytes % (manual) 18 (0-12)
[2021-12-09] MEDS: ASCORBIC ACID 500 MG TAB PO SCH (10:14)
[2021-12-09] MEDS: cefTRIAXone 1GM/50ML D5W 50 ML IV SCH (10:14)
[2021-12-09] MEDS: MULTIPLE VITAMINS W/ MINERALS TAB PO SCH (10:14)
[2021-12-09] MEDS: FERROUS SULFATE 325mg EC TAB PO SCH ×2 (10:14→22:47)
[2021-12-09] MEDS: PANTOPRAZOLE 40 MG/10 ML VIAL INJ IV SCH (10:14)
[2021-12-09] MEDS: DexAMETHasone SOD PHOS 10MG/1ML VIAL INJ IV SCH (10:14)
[2021-12-09] MEDS: METOPROLOL TARTRATE 25 MG TAB PO SCH (10:29)
[2021-12-09 11:41] LABS: % Iron Saturation 40.3 % (20-55)
[2021-12-09] MEDS: LEVALBUTEROL HCL 1.25 MG/3 ML NEB NEB SCH ×3 (13:01→23:59)
[2021-12-09] MEDS: ACETAMINOPHEN 650 mg PER 20.3 mL UD GT PRN (20:05)
[2021-12-09] MEDS ORDERED: METOPROLOL TARTRATE 25 MG TAB PO SCH (22:00)
[2021-12-10] VITALS (38 sets, daily range): BP systolic 97–149; BP diastolic 54–85
[2021-12-10] MEDS: METOPROLOL TARTRATE 25 MG TAB PO SCH ×3 (02:49→21:39)
[2021-12-10 04:42] LABS: Hemoglobin 7.4 g/dL (13.5-17.5)
[2021-12-10 04:45] LABS: Hematocrit 21.4 % (41.0-53.0); Mean Corpuscular Hemoglobin 33.4 pg (28.0-32.0); Mean Corpuscular Hgb Conc. 34.7 g/dL (32.0-36.0); Mean Corpuscular Volume 96.3 fL (80.0-100.0); Red Blood Cells 2.22 10^6/uL (4.5-5.90); White Blood Cell 6.2 10^3/uL (4.4-10.8)
[2021-12-10 04:54] LABS: Red Cell Distribution Width 22.2 % (11.8-14.3)
[2021-12-10 04:55] LABS: Basophils % (manual) 0 (0.0-2.0); Blast Cells 0; Metamyelocytes % 0; Promyelocytes % 0; Reactive Lymphocytes 0
[2021-12-10 05:12] LABS: Calcium 8.9 mg/dL (8.5-10.1); Potassium 3.1 mmol/L (3.5-5.1)
[2021-12-10 05:14] LABS: BUN/Creatinine Ratio 3.5
[2021-12-10] MEDS: LEVALBUTEROL HCL 1.25 MG/3 ML NEB NEB SCH ×3 (06:00→23:57)
[2021-12-10] MEDS: IPRATROPIUM BROM 0.5 MG/2.5ML INH SOL NEB SCH ×2 (06:25→18:00)
[2021-12-10] MEDS ORDERED: SODIUM CHL 0.9% 1000 ML BAG XX ONE (07:00)
[2021-12-10 07:09] LABS: Band Neutrophils % (manual) 7; Eosinophils % (manual) 2 (0-7); Lymphocytes % (manual) 13 (10.0-50.0); Monocytes % (manual) 20 (0-12); Myelocytes % 6
[2021-12-10] MEDS: NOREPINEPHRINE 8 MG/250ML KIT 250 ML IV SCH (07:40)
[2021-12-10] MEDS ORDERED: POTASSIUM CHL 20 Meq TABLET PO ONE (09:30)
[2021-12-10] MEDS ORDERED: METOPROLOL TARTRATE 25 MG TAB PO SCH (10:00)
[2021-12-10] MEDS ORDERED: PIPERACILLIN-TAZOB 2.25GM 50 ML IV ONE (11:45)
[2021-12-10] MEDS ORDERED: AMIODARONE HCL 150 MG in D5W 5% 100 ML IV ONE (12:15)
[2021-12-10] MEDS ORDERED: AMIODARONE 450mg/250ml AE 250 ML IV SCH (12:30)
[2021-12-10] MEDS: FERROUS SULFATE 325mg EC TAB PO SCH (12:33)
[2021-12-10] MEDS: PANTOPRAZOLE 40 MG/10 ML VIAL INJ IV SCH (12:33)
[2021-12-10] MEDS: DexAMETHasone SOD PHOS 10MG/1ML VIAL INJ IV SCH (12:33)
[2021-12-10] MEDS: MULTIPLE VITAMINS W/ MINERALS TAB PO SCH (12:34)
[2021-12-10] MEDS ORDERED: DIGOXIN 0.25 MG TAB PO ONE (14:30)
[2021-12-10] MEDS ORDERED: VANCOMYCIN 1GM/250ML 250 ML IV ONE (16:00)
[2021-12-10] MEDS: AMIODARONE 450mg/250ml AE 250 ML IV SCH (20:50)
[2021-12-10] MEDS ORDERED: EPOETIN ALFA-EPBX 4,000 UNIT/ML VIAL SC ONE (21:00)
[2021-12-10] MEDS: PIPERACILLIN-TAZOB 2.25GM 50 ML IV SCH (21:38)
[2021-12-11] VITALS (45 sets, daily range): BP systolic 125–165; BP diastolic 66–99
[2021-12-11 04:43] LABS: Hematocrit 21.6 % (41.0-53.0); Hemoglobin 7.6 g/dL (13.5-17.5); Mean Corpuscular Hemoglobin 33.8 pg (28.0-32.0); Mean Corpuscular Hgb Conc. 35.2 g/dL (32.0-36.0); Mean Corpuscular Volume 96.2 fL (80.0-100.0); Red Blood Cells 2.24 10^6/uL (4.5-5.90); White Blood Cell 7.4 10^3/uL (4.4-10.8)
[2021-12-11 04:45] LABS: Basophils % (manual) 0 (0.0-2.0); Blast Cells 0; Eosinophils % (manual) 0 (0-7); Metamyelocytes % 0; Myelocytes % 0; Promyelocytes % 0; Reactive Lymphocytes 0; Red Cell Distribution Width 22.5 % (11.8-14.3)
[2021-12-11 04:56] LABS: Calcium 8.8 mg/dL (8.5-10.1); Potassium 3.4 mmol/L (3.5-5.1)
[2021-12-11 04:59] LABS: BUN/Creatinine Ratio 3.8; Bilirubin, Total 0.8 mg/dL (0.2-1.0); Total Protein 6.8 g/dL (6.4-8.2)
[2021-12-11] MEDS: PIPERACILLIN-TAZOB 2.25GM 50 ML IV SCH ×3 (05:54→21:28)
[2021-12-11] MEDS: NOREPINEPHRINE 8 MG/250ML KIT 250 ML IV SCH (07:40)
[2021-12-11 08:05] LABS: Band Neutrophils % (manual) 5; Lymphocytes % (manual) 35 (10.0-50.0)
[2021-12-11 08:06] LABS: Monocytes % (manual) 14 (0-12)
[2021-12-11] MEDS: IPRATROPIUM BROM 0.5 MG/2.5ML INH SOL NEB SCH ×3 (08:12→18:00)
[2021-12-11] MEDS: LEVALBUTEROL HCL 1.25 MG/3 ML NEB NEB SCH ×3 (08:12→18:00)
[2021-12-11] MEDS: DexAMETHasone SOD PHOS 10MG/1ML VIAL INJ IV SCH (10:00)
[2021-12-11] MEDS: PANTOPRAZOLE 40 MG/10 ML VIAL INJ IV SCH (10:00)
[2021-12-11] MEDS: MULTIPLE VITAMINS W/ MINERALS TAB PO SCH (10:00)
[2021-12-11] MEDS: METOPROLOL TARTRATE 25 MG TAB PO SCH ×2 (10:01→21:30)
[2021-12-11] MEDS: AMIODARONE 450mg/250ml AE 250 ML IV SCH (10:49)
[2021-12-11] MEDS ORDERED: POTASSIUM CHL 20MEQ/100ML 100 ML IV ONE (13:45)
[2021-12-11] MEDS: AMIODARONE HCL 200 MG TAB PO SCH (21:29)
[2021-12-12] VITALS (35 sets, daily range): BP systolic 119–152; BP diastolic 66–86
[2021-12-12] MEDS: IPRATROPIUM BROM 0.5 MG/2.5ML INH SOL NEB SCH ×2 (01:16→18:00)
[2021-12-12 04:52] LABS: Mean Corpuscular Hgb Conc. 35.2 g/dL (32.0-36.0); Red Blood Cells 2.26 10^6/uL (4.5-5.90); White Blood Cell 8.1 10^3/uL (4.4-10.8)
[2021-12-12 04:57] LABS: Hematocrit 21.6 % (41.0-53.0); Hemoglobin 7.6 g/dL (13.5-17.5); Mean Corpuscular Hemoglobin 33.8 pg (28.0-32.0); Mean Corpuscular Volume 95.9 fL (80.0-100.0)
[2021-12-12] MEDS: PIPERACILLIN-TAZOB 2.25GM 50 ML IV SCH ×3 (05:04→22:11)
[2021-12-12 05:10] LABS: INR 1.46 (0.9-1.15); Partial Thromboplastin Time 35.3 sec (24.6-33.4)
[2021-12-12 05:29] LABS: BUN/Creatinine Ratio 3.8; Calcium 9.5 mg/dL (8.5-10.1); Potassium 3.6 mmol/L (3.5-5.1)
[2021-12-12 05:31] LABS: Red Cell Distribution Width 21.5 % (11.8-14.3)
[2021-12-12 05:33] LABS: Basophils % (manual) 0 (0.0-2.0); Blast Cells 0; Myelocytes % 0; Promyelocytes % 0; Reactive Lymphocytes 0
[2021-12-12] MEDS: LEVALBUTEROL HCL 1.25 MG/3 ML NEB NEB SCH ×3 (05:46→18:00)
[2021-12-12] MEDS ORDERED: SODIUM CHL 0.9% 1000 ML BAG XX ONE (07:00)
[2021-12-12 09:36] LABS: Band Neutrophils % (manual) 14; Lymphocytes % (manual) 20 (10.0-50.0)
[2021-12-12 09:37] LABS: Eosinophils % (manual) 1 (0-7); Metamyelocytes % 2; Monocytes % (manual) 14 (0-12)
[2021-12-12] MEDS: PANTOPRAZOLE 40 MG/10 ML VIAL INJ IV SCH (09:46)
[2021-12-12] MEDS: MULTIPLE VITAMINS W/ MINERALS TAB PO SCH (09:46)
[2021-12-12] MEDS: DexAMETHasone SOD PHOS 10MG/1ML VIAL INJ IV SCH (09:46)
[2021-12-12] MEDS: AMIODARONE HCL 200 MG TAB PO SCH ×2 (09:47→22:08)
[2021-12-12] MEDS: METOPROLOL TARTRATE 25 MG TAB PO SCH ×2 (09:49→22:09)
[2021-12-12] MEDS ORDERED: DIGOXIN 0.25 MG TAB PO SCH (10:00)
[2021-12-12] MEDS ORDERED: DIGOXIN 0.125 MG TAB PO SCH (10:00)
[2021-12-12] MEDS: CYANOCOBALAMIN (B-12) 1000 MCG/1 ML VIAL IM SCH (10:01)
[2021-12-12] MEDS ORDERED: IODIXANOL 320MG/ML 100ML BTL IV ONE (10:26)
[2021-12-12] MEDS ORDERED: LIDOCAINE 2%HCL (LOCAL ANESTH.) INJ 10ml MDV ONE (10:26)
[2021-12-12] MEDS ORDERED: fentaNYL CITRATE 100 MCG/2 ML VL ONE ×2 (10:30→11:14)
[2021-12-12] MEDS ORDERED: ANGIOMAX 250 MG VIAL IV ONE (10:30)
[2021-12-12] MEDS ORDERED: SODIUM CHL 0.9% 0 ML ONE (10:30)
[2021-12-12] MEDS ORDERED: MIDAZOLAM HCL 2MG/2ML 2ml VIAL (1mg/ml) ONE (11:15)
[2021-12-12] MEDS ORDERED: cloNIDine HCL 0.1 MG TAB PO PRN (13:00)
[2021-12-12] MEDS ORDERED: EPOETIN ALFA-EPBX 10,000 UNIT/1ML VIAL SC ONE (21:00)
[2021-12-13] VITALS (32 sets, daily range): BP systolic 91–158; BP diastolic 48–91
[2021-12-13 05:13] LABS: Red Blood Cells 2.21 10^6/uL (4.5-5.90)
[2021-12-13 05:15] LABS: Hematocrit 21.6 % (41.0-53.0); Hemoglobin 7.3 g/dL (13.5-17.5); Mean Corpuscular Hemoglobin 33.2 pg (28.0-32.0); Mean Corpuscular Hgb Conc. 34.1 g/dL (32.0-36.0); Mean Corpuscular Volume 97.4 fL (80.0-100.0); White Blood Cell 7.3 10^3/uL (4.4-10.8)
[2021-12-13 05:29] LABS: Red Cell Distribution Width 21.8 % (11.8-14.3)
[2021-12-13 05:31] LABS: Basophils % (manual) 0 (0.0-2.0); Blast Cells 0; Eosinophils % (manual) 0 (0-7); Metamyelocytes % 0; Myelocytes % 0; Promyelocytes % 0; Reactive Lymphocytes 0
[2021-12-13 05:42] LABS: Calcium 9.6 mg/dL (8.5-10.1)
[2021-12-13 05:44] LABS: BUN/Creatinine Ratio 3.8; Potassium 3.5 mmol/L (3.5-5.1)
[2021-12-13] MEDS: LEVALBUTEROL HCL 1.25 MG/3 ML NEB NEB SCH ×4 (06:22→18:55)
[2021-12-13] MEDS: IPRATROPIUM BROM 0.5 MG/2.5ML INH SOL NEB SCH ×3 (06:22→18:55)
[2021-12-13 07:01] LABS: Band Neutrophils % (manual) 2; Lymphocytes % (manual) 22 (10.0-50.0); Monocytes % (manual) 20 (0-12)
[2021-12-13] MEDS: PIPERACILLIN-TAZOB 2.25GM 50 ML IV SCH ×3 (08:03→22:02)
[2021-12-13] MEDS: METOPROLOL TARTRATE 25 MG TAB PO SCH ×2 (10:00→22:03)
[2021-12-13] MEDS: AMIODARONE HCL 200 MG TAB PO SCH ×2 (10:00→22:02)
[2021-12-13] MEDS: PANTOPRAZOLE 40 MG/10 ML VIAL INJ IV SCH (10:00)
[2021-12-13] MEDS: CYANOCOBALAMIN (B-12) 1000 MCG/1 ML VIAL IM SCH (10:00)
[2021-12-13] MEDS: DexAMETHasone SOD PHOS 10MG/1ML VIAL INJ IV SCH (10:00)
[2021-12-13] MEDS: MULTIPLE VITAMINS W/ MINERALS TAB PO SCH (10:00)
[2021-12-13] MEDS ORDERED: CYANOCOBALAMIN (B-12) 1000 MCG/1 ML VIAL IM ONE (11:30)
[2021-12-13] MEDS ORDERED: VANCOMYCIN 500 MG in D5W 5% 100 ML IV ONE (17:00)
[2021-12-13] MEDS: guaiFENesin-DM 100/10mg/5ml SYR PO PRN (22:01)
[2021-12-13] MEDS: ONDANSETRON HCL 4 MG/2 ML VIAL IV PRN (22:02)
[2021-12-14] VITALS (21 sets, daily range): BP systolic 131–168; BP diastolic 67–91
[2021-12-14] MEDS: IPRATROPIUM BROM 0.5 MG/2.5ML INH SOL NEB SCH ×3 (06:25→19:28)
[2021-12-14] MEDS: LEVALBUTEROL HCL 1.25 MG/3 ML NEB NEB SCH ×4 (06:26→19:29)
[2021-12-14] MEDS: guaiFENesin-DM 100/10mg/5ml SYR PO PRN (07:34)
[2021-12-14] MEDS: PIPERACILLIN-TAZOB 2.25GM 50 ML IV SCH ×3 (07:34→23:19)
[2021-12-14] MEDS: ONDANSETRON HCL 4 MG/2 ML VIAL IV PRN (07:34)
[2021-12-14] MEDS: ACETAMINOPHEN 650 mg PER 20.3 mL UD GT PRN (09:34)
[2021-12-14] MEDS ORDERED: CYANOCOBALAMIN (B-12) 1000 MCG/1 ML VIAL IM SCH (10:00)
[2021-12-14] MEDS: DexAMETHasone SOD PHOS 10MG/1ML VIAL INJ IV SCH (10:00)
[2021-12-14] MEDS: PANTOPRAZOLE 40 MG/10 ML VIAL INJ IV SCH (10:00)
[2021-12-14] MEDS: CYANOCOBALAMIN (B-12) 1000 MCG/1 ML VIAL IM SCH (10:00)
[2021-12-14] MEDS: AMIODARONE HCL 200 MG TAB PO SCH ×2 (10:00→23:19)
[2021-12-14] MEDS: MULTIPLE VITAMINS W/ MINERALS TAB PO SCH (10:00)
[2021-12-14] MEDS ORDERED: hydrALAZINE HCL 20 MG/ML VL IV PRN (13:45)
[2021-12-14] MEDS ORDERED: VANCOMYCIN 1GM/250ML 250 ML IV ONE (17:00)
[2021-12-14] MEDS: METOPROLOL TARTRATE 25 MG TAB PO SCH (23:20)
[2021-12-15] VITALS (19 sets, daily range): BP systolic 92–148; BP diastolic 51–79
[2021-12-15 05:18] LABS: Hemoglobin 8.2 g/dL (13.5-17.5); White Blood Cell 10.6 10^3/uL (4.4-10.8)
[2021-12-15 05:22] LABS: Mean Corpuscular Hemoglobin 33.5 pg (28.0-32.0); Mean Corpuscular Hgb Conc. 34.2 g/dL (32.0-36.0); Mean Corpuscular Volume 97.9 fL (80.0-100.0); Red Blood Cells 2.46 10^6/uL (4.5-5.90)
[2021-12-15 05:37] LABS: Red Cell Distribution Width 22.2 % (11.8-14.3)
[2021-12-15 05:38] LABS: Basophils % (manual) 0 (0.0-2.0); Blast Cells 0; Promyelocytes % 0; Reactive Lymphocytes 0
[2021-12-15 05:57] LABS: BUN/Creatinine Ratio 4.2; Calcium 9.1 mg/dL (8.5-10.1); Magnesium 2.5 mg/dL (1.6-2.6); Potassium 4.3 mmol/L (3.5-5.1)
[2021-12-15] MEDS: PIPERACILLIN-TAZOB 2.25GM 50 ML IV SCH ×3 (06:21→21:58)
[2021-12-15] MEDS: LEVALBUTEROL HCL 1.25 MG/3 ML NEB NEB SCH ×3 (06:29→18:22)
[2021-12-15] MEDS: IPRATROPIUM BROM 0.5 MG/2.5ML INH SOL NEB SCH ×3 (06:29→18:22)
[2021-12-15 06:58] LABS: Band Neutrophils % (manual) 4; Eosinophils % (manual) 1 (0-7); Lymphocytes % (manual) 12 (10.0-50.0); Metamyelocytes % 1; Monocytes % (manual) 19 (0-12); Myelocytes % 3
[2021-12-15] MEDS ORDERED: SODIUM CHL 0.9% 1000 ML BAG XX ONE (07:00)
[2021-12-15] MEDS ORDERED: Ensure HIGH Protein Chocolate 8oz Bottle PO SCH (12:00)
[2021-12-15] MEDS: CYANOCOBALAMIN (B-12) 1000 MCG/1 ML VIAL IM SCH (13:11)
[2021-12-15] MEDS: DexAMETHasone SOD PHOS 10MG/1ML VIAL INJ IV SCH (13:11)
[2021-12-15] MEDS: AMIODARONE HCL 200 MG TAB PO SCH ×2 (13:12→21:58)
[2021-12-15] MEDS: PANTOPRAZOLE 40 MG/10 ML VIAL INJ IV SCH (13:12)
[2021-12-15] MEDS: METOPROLOL TARTRATE 25 MG TAB PO SCH ×2 (13:13→21:58)
[2021-12-15] MEDS: MULTIPLE VITAMINS W/ MINERALS TAB PO SCH (13:13)
[2021-12-15] MEDS: Nepro With Carbsteady Vanilla 8oz Carton PO SCH (18:00)
[2021-12-15] MEDS ORDERED: EPOETIN ALFA-EPBX 10,000 UNIT/1ML VIAL SC ONE (21:00)
[2021-12-16] VITALS (16 sets, daily range): BP systolic 104–129; BP diastolic 55–74
[2021-12-16] MEDS: IPRATROPIUM BROM 0.5 MG/2.5ML INH SOL NEB SCH ×2 (06:06→11:59)
[2021-12-16] MEDS: LEVALBUTEROL HCL 1.25 MG/3 ML NEB NEB SCH ×2 (06:09→11:59)
[2021-12-16] MEDS: PIPERACILLIN-TAZOB 2.25GM 50 ML IV SCH ×2 (06:23→14:00)
[2021-12-16] MEDS: Nepro With Carbsteady Vanilla 8oz Carton PO SCH ×2 (08:00→12:00)
[2021-12-16] MEDS: CYANOCOBALAMIN (B-12) 1000 MCG/1 ML VIAL IM SCH ×2 (10:00→11:06)
[2021-12-16] MEDS ORDERED: CIPR500T4 PO (10:39)
[2021-12-16] MEDS ORDERED: MEGE20TA5 PO (10:39)
[2021-12-16] MEDS ORDERED: MET25T PO (10:39)
[2021-12-16] MEDS ORDERED: AMIO200T33 PO (10:39)
[2021-12-16] MEDS: DexAMETHasone SOD PHOS 10MG/1ML VIAL INJ IV SCH (11:06)
[2021-12-16] MEDS: METOPROLOL TARTRATE 25 MG TAB PO SCH (11:07)
[2021-12-16] MEDS: PANTOPRAZOLE 40 MG/10 ML VIAL INJ IV SCH (11:07)
[2021-12-16] MEDS: MULTIPLE VITAMINS W/ MINERALS TAB PO SCH (11:07)
[2021-12-16] MEDS: AMIODARONE HCL 200 MG TAB PO SCH (11:07)
== END 2021-12-16 15:40 | disposition home or self-care (01) | DRG 870 ==
LOC: ER 11:20 → EDBD 11:20 → TELE 16:44 → ICU WEST 12-01 16:36 → DOU IN ICU 12-12 23:43
PROVIDERS: ADMIT Registered Nurse; ATTEND Nurse Practitioner Acute Care
PROC: 5A1955Z Respiratory Ventilation, Greater than 96 Consecutive Hours (ICD-10-PCS; principal; 2021-12-01)
PROC: 0BH17EZ Insertion of Endotracheal Airway into Trachea, Via Natural or Artificial Opening (ICD-10-PCS; 2021-12-01)
PROC: 05HF33Z Insertion of Infusion Device into Left Cephalic Vein, Percutaneous Approach (ICD-10-PCS; 2021-12-01)
PROC: B54NZZA Ultrasonography of Left Upper Extremity Veins, Guidance (ICD-10-PCS; 2021-12-01)
PROC: 5A1D70Z Performance of Urinary Filtration, Intermittent, Less than 6 Hours Per Day (ICD-10-PCS; 2021-12-01)
PROC: 30233N1 Transfusion of Nonautologous Red Blood Cells into Peripheral Vein, Percutaneous Approach (ICD-10-PCS; 2021-12-03)
PROC: 5A1D70Z Performance of Urinary Filtration, Intermittent, Less than 6 Hours Per Day (ICD-10-PCS; 2021-12-03)
PROC: 5A1D70Z Performance of Urinary Filtration, Intermittent, Less than 6 Hours Per Day (ICD-10-PCS; 2021-12-05)
PROC: 5A1D70Z Performance of Urinary Filtration, Intermittent, Less than 6 Hours Per Day (ICD-10-PCS; 2021-12-08)
PROC: 5A1D70Z Performance of Urinary Filtration, Intermittent, Less than 6 Hours Per Day (ICD-10-PCS; 2021-12-10)
PROC: 4A023N8 Measurement of Cardiac Sampling and Pressure, Bilateral, Percutaneous Approach (ICD-10-PCS; 2021-12-12)
PROC: B215YZZ Fluoroscopy of Left Heart using Other Contrast (ICD-10-PCS; 2021-12-12)
PROC: B211YZZ Fluoroscopy of Multiple Coronary Arteries using Other Contrast (ICD-10-PCS; 2021-12-12)
PROC: 5A1D70Z Performance of Urinary Filtration, Intermittent, Less than 6 Hours Per Day (ICD-10-PCS; 2021-12-12)
PROC: 5A1D70Z Performance of Urinary Filtration, Intermittent, Less than 6 Hours Per Day (ICD-10-PCS; 2021-12-15)
DX: A41.9 Sepsis, unspecified organism (principal); G93.41 Metabolic encephalopathy; J15.9 Unspecified bacterial pneumonia; J96.01 Acute respiratory failure with hypoxia; N18.6 End stage renal disease; R65.21 Severe sepsis with septic shock; D61.818 Other pancytopenia; F84.0 Autistic disorder; I13.2 Hypertensive heart and chronic kidney disease with heart failure and with stage 5 chronic kidney disease, or end stage renal disease; I32 Pericarditis in diseases classified elsewhere; I31.39 Other pericardial effusion (noninflammatory); Z20.822 Contact with and (suspected) exposure to COVID-19; E78.00 Pure hypercholesterolemia, unspecified; D63.8 Anemia in other chronic diseases classified elsewhere; I25.10 Atherosclerotic heart disease of native coronary artery without angina pectoris; I48.0 Paroxysmal atrial fibrillation; Z78.1 Physical restraint status; Z79.899 Other long term (current) drug therapy; Z80.1 Family history of malignant neoplasm of trachea, bronchus and lung; Z99.2 Dependence on renal dialysis; Z82.49 Family history of ischemic heart disease and other diseases of the circulatory system; Z85.79 Personal history of other malignant neoplasms of lymphoid, hematopoietic and related tissues
CPT/HCPCS: 33016; 36415; 36600; 71045; 71250; 71275; 76604; 80048; 80053; 80069; 80162; 80202; 82728; 82805; 83540; 83550; 83735; 84132; 84484; 85007; 85014; 85018; 85027; 85610; 85730; 86850; 86900; 86901; 86920; 87040; 87070; 87081; 87205; 87340; 87426; 87804; 90935; 92610; 93005; 93306; 93460; 94002; 94003; 94640; 96365; 96367; 96372; 96375; 96376; 97110; 97116; 97530; 99152; 99291; A4565; C1751; C9113; G0378; J0330; J0696; J1100; J1642; J1956; J2001; J2250; J2405; J2543; J2704; J3480; J7060; P9047; Q9967